=== PATIENT | female | born 1945 | race Two or more races ===

== ENCOUNTER 2025-02-13 12:55 | Emergency (ER) | payer OTHER ==
[~2025-02-13] VITALS: Ht 162.6 cm; Wt 59.0 kg
[2025-02-13 13:54] LABS: Hematocrit 39.7 % (36.0-46.0); Hemoglobin 13.2 g/dL (12.2-16.2); Mean Corpuscular Hemoglobin 28.0 pg (28.0-32.0); Mean Corpuscular Volume 84.2 fL (80.0-100.0); Nucleated Red Blood Cells % 0.0 %
[2025-02-13 13:56] LABS: Chloride 106 mmol/L (98-107); Potassium 3.9 mmol/L (3.5-5.1); Sodium 142 mmol/L (136-145)
[2025-02-13 13:57] LABS: Anion Gap 10 (5-15); Carbon Dioxide 26 mmol/L (20-31)
[2025-02-13 13:58] LABS: Calcium 10.8 mg/dL (8.7-10.4)
[2025-02-13] MEDS: ACETAMINOPHEN 650 mg PER 20.3 mL UD PO ONE (14:00)
[2025-02-13 14:02] LABS: BUN/Creatinine Ratio 11.7 (10.0-20.0); Blood Urea Nitrogen 11 mg/dL (9-23); Glucose 106 mg/dL (74-106)
--- NOTE | 2025-02-13 14:02 | ECG ---
[facility] Test Date: 2025-02-13 Test Time: 13:15:19 Pat Name: BRE GUILLEN Department: ER Room: Gender: F Airplane Designer: : 1945 Requested By: HOMERO SALVADOR Order Number: [id number] Reading MD: Measurements Intervals [place] Rate: 68 P: 53 [place]: 180 QRS: -2 QRSD: 93 T: 71 QT: 397 QTc: 423 Interpretive Statements Sinus rhythm Anterior infarct, old Please click the below link to view image of tracing.
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
[2025-02-13] MEDS: IOHEXOL 300 MG/ML 100ML BOTTLE IJ ONE (18:34)
[2025-02-13 19:16] VITALS: TEMP 97
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
[2025-02-13] MEDS ORDERED: BAC09TP TOP (21:08)
[2025-02-13] MEDS ORDERED: ACET1CAP14 PO (21:08)
[2025-02-13 21:50] VITALS: BP 135/78; PULSE 66; RESP 16; O2SAT 98
[2025-02-13] MEDS: TETANUS-DIPTH-ACEL PERTUSSIS 0.5ML SYR Tdap IM ONE (22:03)
== END 2025-02-13 22:08 | disposition home or self-care (01) ==
LOC: EDBD 12:55 → EDSEX 12:55 → ER 12:55
DX: S51.811A Laceration without foreign body of right forearm, initial encounter (principal); S20.219A Contusion of unspecified front wall of thorax, initial encounter; S00.31XA Abrasion of nose, initial encounter; K21.9 Gastro-esophageal reflux disease without esophagitis; R06.02 Shortness of breath; Z90.710 Acquired absence of both cervix and uterus; V43.52XA Car driver injured in collision with other type car in traffic accident, initial encounter; Y93.I9 Activity, other involving external motion; Y92.488 Other paved roadways as the place of occurrence of the external cause; Y99.8 Other external cause status
CPT/HCPCS: 36415; 71260; 80048; 83880; 84484; 85025; 90471; 90715; 93005; 99285; Q9967